=== PATIENT | male | born 1975 | race Caucasian/White ===

== ENCOUNTER → 2019-09-17 | Outpatient (CLI) | payer MEDICARE, OTHER ==
--- NOTE | 2019-09-17 11:32 | FL ---
EXAMINATION TYPE: FL barium swallow w video DATE OF EXAM: 09/17/2019 MODIFIED SWALLOW / DEGLUTITION STUDY CLINICAL HISTORY: Dysphagia. Burning in throat. TECHNIQUE: Deglutition study is performed utilizing thin liquid barium, nectar thick liquid barium, and barium thick pudding. A total 56 seconds of fluoroscopic time utilized. Serial spot images saved to PACS. COMPARISON: None. FINDINGS: The oral and pharyngeal phases show satisfactory initiation and propagation with all modali ties tested. Patient refused solid modality. There is no evidence of penetration or aspiration with any modality tested. Mild pharyngeal residual with barium thick pudding. Patient had poor tolerance o f pudding with only small samples performed. IMPRESSION: Slightly suboptimal study, No penetration or aspiration observed. Please refer to speech therapist notes for further details if necessary.
== END | disposition home or self-care (01) ==
LOC: EEVIPCON 10:50 → RADFLMAIN 10:50
PROVIDERS: ATTEND Family Medicine
DX: K22.0 Achalasia of cardia (principal); Z88.0 Allergy status to penicillin; Z88.1 Allergy status to other antibiotic agents
CPT/HCPCS: 74230